=== PATIENT | female | born 1985 | race Caucasian/White ===

== ENCOUNTER 2020-10-22 15:34 | Inpatient (IN) | payer MEDICARE, BC ==
[~2020-10-22] VITALS: Ht 170.2 cm; Wt 137.0 kg
[2020-10-22] MEDS ORDERED: VITAMIN D21250 MCG PO (15:58)
[2020-10-22] MEDS ORDERED: CLARITIN10 MG PO (15:58)
[2020-10-22] MEDS ORDERED: PORTIA1 EACH PO (15:58)
--- NOTE | 2020-10-22 20:18 | NUR ---
PT ARRIVED TO THE [facility] FLOOR AT 1947, PT MOVED HERSELF OVER FROM THE STRETCHER TO THE BED. PT IS ALERT AND ORIENTED AD IS AT BEDSIDE. REVIEWED ADMISSION HX WITH PT. ORIENTED PT TO CALL LIGHT AND ROOM. PROVIDED PT WITH WATER AND SHE DENIES THE NEED FOR ANYOTHER CLEAR LIQUIDS AT THIS TIME. PT DENIES FURTHER NEEDS AND HAS LEFT FOR THE NIGHT. CALL LIGHT IS CLOSE.
--- NOTE | 2020-10-22 20:55 | NUR ---
awake, anxious, reassured. COop wtih admit questions. Pt has abnormal tongue movements and abnormal all over body tremors from MS. unsteady gait, 1PA. lungs clear, LBM today, generalized edema , obese, flushed face, abd tender. IVF infusing. Wirtten and verbal info given r/t current admit meds, preop and post op expectation, written info given and questions answered to her satisfaction
--- NOTE | 2020-10-22 23:32 | NUR ---
IN TO GET PT UP TO THE TOILET 1PA TO SBA, NO FURTHER NEEDS, PT FINISHED WATER FOR NPO AT OR, NO FURTHER NEEDS
--- NOTE | 2020-10-23 00:03 | NUR ---
AWAKES EASILY, NPO FOR AM PROCEDURES, NO C/O ABD PAIN OR N/V. CALL LIGHT AT BEDSIDE, ORRAL SPONGES AND SWABS. IVF INFUSING.
--- NOTE | 2020-10-23 02:02 | NUR ---
resting, no distress, ivf infusing, call light at bedside npo
--- NOTE | 2020-10-23 03:02 | NUR ---
Up to br, voided, back to bed, no c/o abd pain or n/v
--- NOTE | 2020-10-23 04:17 | NUR ---
uP TO BR, VOIDED qs YELLOW URINE, BACK TO BED, SLIGHT UNSTEADDINESS r SIDE. oN ROOM AIR, ivf INFUSING, DENIES ABDPAIN OR N/V AT THIS TIME
--- NOTE | 2020-10-23 06:02 | NUR ---
Pt has slept off and on since admit from ED. No emesis, mild c/o abd pain but declines pain med. Pt alert and oriented. Has Multiple Sclerosis with Ride sided weakness more prominent than Left. wears R foot brace. Involuntary all over body tremors present. Has been NPO since midnight for possible am procedure. Up to br, voiding QS. Was very anxious on admission, calmer. All procedures need to be explained prior to to decreae anxiety. prop/post op what to expect explained, stated understanding and questions answered to her satisfaction. verbal and written information given. IVF infusing.
--- NOTE | 2020-10-23 06:08 | NUR ---
Dr Fortune in room talking to pt , permit signed. Pt up to br, voided, back to bed, slight unsteadiness and noted.
--- NOTE | 2020-10-23 06:15 | NUR ---
IN TO ASSIST RN WITH VITALS, NO FURTHER NEEDS AT THIS TIME
--- NOTE | 2020-10-23 07:30 | NUR ---
REPORT RECEIVED FROM JENNIFER WAREHOUSE CHECKER RN. PT AWAKE IN BED THIS AM. REPORTS PAIN BUT DOES NOT WANT PAIN MEDICATION AT THIS TIME. PT PROBED FOR FURTHER DESCRIPTION OF PAIN, SHE RATES HER RUQ 8/10 DULL RADIATING ACHE. ENCOURAGED PT THAT ORAL PAIN MEDICATION WILL LAST LONGER, PREMEDICATED W/ ZOFRAN TO PREVENT N/V FROM GIVING PAIN MED ON EMPTY STOMACH PT REMAINS NPO. LUNG SOUNDS ARE CLEAR. BOWEL TONES HYPOACTIVE. PT SBA TO BATHROOM. RECEIVING D5LR @ 100 MLS/HR, UP TO VOID FREQUENTLY. IV FLAGYL HUNG. LFA IV REMAINS PATENT. EDUCATED PT TO NOTIFY NURSE FOR PAIN, SWELLING OR BLANCHING. PT LESS ANXIOUS THIS MORNING ABOUT SURGERY. DENIES FURTHER NEEDS. CALL LIGHT IN REACH.
--- NOTE | 2020-10-23 08:30 | NUR ---
PT CALLING TO REPORT BURNING PAIN AT LFA IV SITE. IV APPEARS INFILTRATED, MINIMAL SWELLING, BLANCHING, UNABLE TO FLUSH. IV REMOVED. THIS RN ATTEMPTED 2 IV STARTS, BOTH UNSUCCESSFUL. ROBERT SOLOMON RN CALLED FOR US GUIDED IV START PT IS LVS. PT UP TO BATHROOM, SURGICAL WIPEDOWN COMPLETE. PT BACK TO BED. SCDS ON. PRE OP CHECKLIST COMPLETED EARLY THIS AM BY MANAGER POWER RN.
--- NOTE | 2020-10-23 10:00 | NUR ---
ROBERT SOLOMON RN IN TO START US GUIDED IV. SUCCESSFUL AFTER 1 ATTEMPT, 18 G 2 1/2 IN. IV INSERTED INTO MONROE. PATENT AND FLUSHING WELL, IV FLAGYL RESTARTED.
--- NOTE | 2020-10-23 11:00 | NUR ---
PT TO SURGERY VIA [facility]ER W/ LEEANN DAY SURGERY RN
--- NOTE | 2020-10-23 12:39 | NUR ---
PT TAKEN TO OR FOR SURGERY. WILL FOLLOW
[2020-10-23] MEDS ORDERED: SUDOGEST30 MG PO (12:48)
[2020-10-23] MEDS ORDERED: MULTI VITAMIN1 EACH PO (12:49)
[2020-10-23] MEDS ORDERED: PROBIOTIC1 EAC1 PO (12:51)
--- NOTE | 2020-10-23 12:51 | NUR ---
MED REC COMPLETE
--- NOTE | 2020-10-23 15:19 | NUR ---
PATIENT DID HER OWN SURGICAL WIPE DOWN. NEW GOWN AND SOCKS. ALSO PUT THE SCDS ON.
--- NOTE | 2020-10-23 15:45 | CONS ---
[facility] [address] [place], [place] [address] Signed DATE OF CONSULTATION: 10/23/2020 CHIEF COMPLAINT: Right upper quadrant abdominal pain. HISTORY OF PRESENT ILLNESS: Patricia is a 35-year-old obese female, who over the last six days has been having persistent increasing right upper quadrant abdominal pain radiating through to her back. She has cut back her food significantly. She is still having pain. She had been to her primary care provider. Labs were drawn. They were particularly concerning. They were trying to get authorization for imaging. She finally came to emergency room because of the persistent worsening pain. The ultrasound showed multiple stones in the gallbladder with a mildly thickened gallbladder wall. Common bile duct is unremarkable. She had a positive Michelle's sign. Chest x-ray was unremarkable. I have been asked to admit her yesterday evening as a general surgeon on-call. She was given one dose of Zosyn. Overnight, she has done well. PAST MEDICAL HISTORY: Multiple sclerosis and obesity. PAST SURGICAL HISTORY: None. SOCIAL HISTORY: She does not smoke or drink. She is to Carl at [phone]. She has two children, both born vaginally. Eliana Posadas is a primary care provider. She prefers the [facility]. FAMILY HISTORY: None. REVIEW OF SYSTEMS: She had 10 systems reviewed and she takes no medication for the multiple sclerosis. ALLERGIES: None. MEDICATIONS: None. PHYSICAL EXAMINATION: VITAL SIGNS: Blood pressure is 106/67, her heart rate 85, respiratory rate 17, temperature is 97.6, she is 98% on room air, she is 5 feet 7 inches at 137 kg. Electronically Signed By: RAMONE BROWNING MD 10/23/20 1545 PATIENT NAME: PATRICIA CONNELLY CONSULTATION DATE OF : 83 REPORT #: [id number] PHYSICIAN: RAMONE BROWNING MD PCP: ELIANA POSADAS REPORT IS CONFIDENTIAL AND NOT TO BE RELEASED WITHOUT AUTHORIZATION [facility] [address] [place], [place] [address] Signed GENERAL: Patricia is a 35-year-old female, who does not appear systemically ill or jaundiced. LUNGS: Generally clear to auscultation bilaterally. HEART: Regular rate and rhythm without murmur. ABDOMEN: Obese, soft, but tender in the right upper quadrant. LABORATORY DATA: Her white blood cell count is 8.4, hemoglobin 12, platelets are 293. Electrolytes are unremarkable. The COVID is negative. Beta-hCG negative. AST 12, ALT 14, alkaline phosphatase 75, total bilirubin 0.5, albumin 3.8, amylase 18. RADIOGRAPHIC STUDIES: The ultrasound shows multiple stones and mildly thickened gallbladder wall with a positive Michelle's sign. Chest x-ray is unremarkable. ASSESSMENT/PLAN: Patricia is a 35-year-old obese female, who presents with cholecystitis and cholelithiasis. She has been admitted and hydrated overnight. I reviewed with her the location and function of the gallbladder. I gave her a brochure on the gallbladder as well. We went through that brochure page by page. She understands laparoscopic versus open cholecystectomy. We reviewed the risks including, but not limited to bleeding, infection, scarring, change in contour of the skin, damage to bowel, damage to main bile duct, incisional hernias and other unforeseen comorbidities. She has expressed understanding and would like to proceed with the surgery. Ramone Browning MD ALB/MODL /[id number] cc: MD Eliana Sr PA Copies: RAMONE BROWNING MD Electronically Signed By: RAMONE BROWNING MD 10/23/20 1545 PATIENT NAME: PATRICIA CONNELLY CONSULTATION DATE OF : 83 REPORT #: [id number] PHYSICIAN: RAMONE BROWNING MD PCP: ELIANA POSADAS REPORT IS CONFIDENTIAL AND NOT TO BE RELEASED WITHOUT AUTHORIZATION [facility] [address] [place] [address] Signed ELIANA POSADAS Electronically Signed By: RAMONE BROWNING MD 10/23/20 1545 PATIENT NAME: PATRICIA CONNELLY CONSULTATION DATE OF : 83 REPORT #: [id number] PHYSICIAN: RAMONE BROWNING MD PCP: ELIANA POSADAS REPORT IS CONFIDENTIAL AND NOT TO BE RELEASED WITHOUT AUTHORIZATION
--- NOTE | 2020-10-23 15:47 | NUR ---
10/23/20 1547 Isaura Morris 1543: PT ARRIVES TO ACU VIA BED FOR RECOVERY. NO RESPONSE TO VERBAL STIMULI, VSS, RESP EVEN AND UNLABORED. O2 SAT >955 ON 8L VIA FACEMASK. MAINTAINING AIRWAY WITH HEAD TILTED,OPA IN PLACE. SCDS IN PLACE
--- NOTE | 2020-10-23 17:15 | NUR ---
PT ARRIVED BACK TO ROOM VIA BED W/ [facility] @ 2345. REPORT RECEIVED AT BEDSIDE. VSS. PT ON 2 L NC SATING 96%, RR 16. PT RATING PAIN AT MIDLINE INCISION 10/10. 1 MG DILAUDID IV PUSH GIVEN SLOWLY. PT REPORTED FEELING A "HOTFLASH" 5 MINUTES AFTER RECEIVING DILAUDID. COOL WASHCLOTHS PLACED ON HEAD AND NECK, PT REPORTS FEELING MORE COMFORTABLE NOW, REPOSITIONED W/ PILLOWS. D5LR RESTARTED @ 100 MLS/HR. GIVEN ICE WATER. CLEAR LIQUID TRAY ORDERED. PT DENIES NAUSEA. CALL LIGHT IN REACH.
--- NOTE | 2020-10-23 18:44 | NUR ---
PT TOLERATED CLEAR LIQUID TRAY WELL. DENIES NAUSEA AND ABD PAIN HAS BEEN WELL MANAGED W/ 1 MG IV DILAUDID RECEIVED EARLIER, PT NOW RATES 4/10. REQUESTING TO USE BATHROOM, UP 1 PA TO AMBULATE TO BATHROOM, PT STATES SHE FEELS STEADY ON FEET. MIDLINE INCISION DRSG AND LAP SITE DRSGS TO RUQ, RLQ REMAIN C,D,I. BOWEL TONES HYPOACTIVE, PT BURPING, NOT YET PASSING GAS. SATING 94 % ON ROOM AIR. LUNG SOUNDS ARE CLEAR. PT DENIES SOB. EDUCATED ON IMPORTANCE OF AMBULATION POST-OP. PT VERBALIZED UNDERSTANDING.
--- NOTE | 2020-10-23 19:57 | NUR ---
PT RESTING IN BED. ABD PAIN 4/10, DENIES NEED FOR INTRERVENTION. CALL LIGHT IN REACH.
--- NOTE | 2020-10-23 20:07 | NUR ---
IN TO ASSIST RN WITH LAST SET OF POSTOPS, NO FURHTER NEEDS
--- NOTE | 2020-10-23 21:20 | NUR ---
PT CALLED FOR HELP TO RESTROOM. SHE IS NOW BACK IN BED AND DENIES FURTHER NEEDS. CALL LIGHT IS CLOSE.
--- NOTE | 2020-10-23 22:03 | NUR ---
IN ROOM TO ADMINISTER MEDICATIONS FOR PRIMARY RN LORIE. PT RATES PAIN AT 8/10. WE DISCUSSED GETING HER ON PO PAIN MEDS. PT AGREED TO HAVE IV DILAUDID AT THIS TIME TO GET HER PAIN UNDER CONTROL AND TAKE THE PO NORCO A LITTLE LATER TO KEEP HER PAIN UNDER CONTROL. PROVIDED PT WITH A FAN AND ADMINISTERED HER EVENING MEDICATIONS ALONG WITH 1MG IV DILAUDID. PT DENIES FURTHER NEEDS AT THIS TIME. CALL LIGHT IS CLOSE.
--- NOTE | 2020-10-23 22:30 | NUR ---
ASSESSMENT COMPLETED. GCS 15, A&O X4. LUNGS CLEAR, HEART TONES REGULAR. ABD SOFT, TENDER, BOWEL TONES HYPOACTIVE, DENIES FLATUS, INCISIONS HAVE SLIGHT SHADOWING ON DRESSINGS, INTACT. ABD 4/10, DENIES NEED FOR INTERVENTION. IV WNL. TINGLING IN LEFT HAND, PULSE AND MOTOR INTACT. CMS INTACT IN ALL OTHER EXTREMITIES. IV FLUIDS INFUSING PER ORDER. NO OTHER NEEDS AT THIS TIME. CALL LIGHT IN REACH.
--- NOTE | 2020-10-24 00:23 | NUR ---
PT RESTING IN BED, EYES CLOSED. RR EVEN, UNLABORED. CALL LIGHT IN REACH.
--- NOTE | 2020-10-24 02:02 | NUR ---
in to get vitals, pt up to void, no further needs at this time
--- NOTE | 2020-10-24 02:10 | NUR ---
ASSESSMENT, VS AND I&O COMPLETED. GCS 15, A&O X4. PT ABD PAIN 4/10, DENIES NEED FOR INTERVENTION. DRESSINGS HAVE SMALL AMOUNT OF SHADOWING. ABD SOFT, TENDER, OBESE, BOWEL TONES HYPOACTIVE. IV WNL, CDI. LUNGS CLEAR, HEART TONES REGULAR. LEFT HAND HAS TINGLING, CHRONIC. ICE WATER PROVIDED. NO OTHER NEEDS, CALL LIGHT IN REACH.
--- NOTE | 2020-10-24 02:28 | NUR ---
PT CALLED D/T IV PUMP BEEPING. IT IS NOW INFUSING FINE. PT DENIES NEEDS AND CALL LIGHT IS CLOSE.
--- NOTE | 2020-10-24 04:02 | NUR ---
PT RESTING IN BED, EYES CLOSED. RR EVEN, UNLABORED. CALL LIGHT IN REACH.
--- NOTE | 2020-10-24 05:50 | OR ---
[facility] [address] [place], [place] [address] Signed DATE OF OPERATION: 10/23/2020 SURGEON: Ramone Browning MD PREOPERATIVE DIAGNOSIS: Acute cholecystitis with cholelithiasis. 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 PROCEDURE: Laparoscopic converted to laparotomy with partial omentectomy. ESTIMATED BLOOD LOSS: None. FINDINGS: Patricia had a completely normal gallbladder and appendix. She had a twisting of her right side of the omentum that secondarily involved the midportion of the transverse colon as well as a small amount of the proximal to mid right colon. INDICATIONS: Patricia is a 35-year-old female, who had several days of right-sided abdominal pain. She was felt to have right lower quadrant pain with her primary care provider. Labs were ordered and they were all normal including the white count and liver function tests. Amylase and lipase were normal. C-reactive protein was little elevated at 32. They were waiting for authorization for a CT scan of the abdomen and pelvis. In the office, they had concerns regarding appendicitis. Her pain persisted, and so her brought her into the emergency room for evaluation. In the emergency room, it seemed to be more right upper quadrant. No repeat labs were done the following morning. An ultrasound had been ordered and she was said to have multiple gallstones with a mildly thickened gallbladder wall. Common bile duct was unremarkable. I have been asked to admit her overnight as general surgeon on-call. She received IV fluids and antibiotics. This morning when I met with her, she was photographer still in the right upper quadrant, felt like it was radiating through to her back. She said she was hungry, could probably eat, but her appetite was not the best due to the pain. We had discussed the above findings along with the location and function of the gallbladder. We had discussed laparoscopic versus open cholecystectomy. We reviewed the expected intraop and postop course. She understands there is risk including, but not limited to bleeding, infection, scarring, change in contour of the skin, damage to bowel, damage to Electronically Signed By: RAMONE BROWNING MD 10/24/20 0550 PATIENT NAME: PATRICIA CONNELLY OPERATIVE REPORT DATE OF : 83 REPORT #: [id number] PHYSICIAN: RAMONE BROWNING MD PCP: CINDY PERALES REPORT IS CONFIDENTIAL AND NOT TO BE RELEASED WITHOUT AUTHORIZATION [facility] [address] [place], [place] [address] Signed main bile duct, incisional hernias, and other unforeseen comorbidities. She had expressed understanding and wished to proceed. DESCRIPTION OF PROCEDURE: I met with Patricia in our preoperative area once again. After that, she was taken into the operating room and placed in the supine position under general endotracheal tube anesthesia. She was on preoperative antibiotics. She had preoperative Lovenox. SCDs were in place. She was prepped and draped in usual sterile fashion. Our trocars were placed in usual positions under direct visualization of camera without difficulty. As always, we took a look around the abdomen. Her gallbladder was somewhat lateral and seemed quite uninflamed. Liver was fine. Stomach was fine. We saw inflammatory changes in the omentum on the right side involving the proximal to mid transverse colon and then down to the proximal portion of the right colon and up the side of the right colon just a bit. We added another 5 mm trocar in the right lower quadrant of the abdomen and that helped us evaluate the appendix, which was completely uninvolved and quite healthy. We looked at the gallbladder and lifted it up gently and it was quite uninvolved in this whole process. It was clear that everything was involved with this omentum. Initially, we used blunt dissection, we were able to separate most of this from the surrounding bowel and mesocolon. Unfortunately, there was one piece that was adherent midway between the panic flexure in the midportion of the transverse colon. We were sure of how involved that was with the bowel, we did not feel like we could evaluate that adequately with our laparoscopic instruments. We actually took several minutes in that regard. We decided to convert her to an open upper midline laparotomy. This was done sharply and then with the help of the cautery. We were able to enter the abdomen without difficulty. Again, we looked at the cecum and all the way around hepatic flexure, all the way past this area of infarcted omentum. The colon was quite unremarkable and so was the gallbladder itself. We found underneath there was an area of adhesion and it had twisted the omentum and caused the infarction. We think the colon was secondarily involved. There was just a small area of adhesion to the proximal transverse colon that was easily taken down with the cautery. We palpated very carefully and again no evidence of any tumor or other concern or diverticulum. The omentum came off quite readily with the cautery since it had been infarcted for about 6-7 days. We passed the omentum off the field for pathologic review. After thorough inspection, we did not feel the gallbladder nor the appendix needed to be removed. We then closed her midline laparotomy with multiple interrupted [id number] #1 PDS sutures. We closed the fascia of the supraumbilical trocar site with interrupted 0 Vicryl suture. We injected local anesthetic into this incisions. The wounds were irrigated and suctioned out until clear. The dermis was reapproximated on all incisions with interrupted 3-0 subcuticular Monocryl sutures. We used ronn to reapproximate the skin on all the incisions. Dry gauze and tape were then applied. After this, a Quick catheter was passed in and out with return to 200 mL of clear yellow urine. She was then awakened from her anesthesia, extubated in the OR, and taken to the recovery Electronically Signed By: RAMONE BROWNING MD 10/24/20 0550 PATIENT NAME: PATRICIA CONNELLY OPERATIVE REPORT DATE OF : 83 REPORT #: [id number] PHYSICIAN: RAMONE BROWNING MD PCP: CINDY PERALES REPORT IS CONFIDENTIAL AND NOT TO BE RELEASED WITHOUT AUTHORIZATION [address] [address] Signed room in stable condition. Ramone Browning MD ALB/MODL /[id number] cc: MD Cindy Sr PA Copies: RAMONE BROWNING MD, LINDA PA ~ Electronically Signed By: RAMONE BROWNING MD 10/24/20 0550 PATIENT NAME: PATRICIA CONNELLY OPERATIVE REPORT DATE OF : 83 REPORT #: [id number] PHYSICIAN: RAMONE BROWNING MD PCP: CINDY PERALES REPORT IS CONFIDENTIAL AND NOT TO BE RELEASED WITHOUT AUTHORIZATION
--- NOTE | 2020-10-24 06:16 | NUR ---
IN ROOM TO ADMINISTER NORCO FOR PAIN 12/19. PT IS ON THE PHONE WITH AND DENIES FURTHER NEEDS. CALL LIGHT IS CLOSE.
--- NOTE | 2020-10-24 07:54 | NUR ---
REPORT RECEIVED FROM LORIE FUENTES. PT AWAKE THIS MORNING. PT HAS BEEN ADVANCED TO REGULAR DIET SHE HAS BEEN TOLERATING CLEAR AND FULL LIQUIDS WELL. PT DENIES NAUSEA THIS MORNING AND REPORTS MINIMAL PAIN. SURGICAL INCISIONS (MIDLINE AND 4 LAP SITES) HAVE KIAN IN PLACE AND ARE OPEN TO AIR, NO DRAINAGE. BREAKFAST ORDERED, WATER REFRESHED. PT DENIES FURTHER NEEDS.
--- NOTE | 2020-10-24 09:31 | NUR ---
SBA TO BR. VITALS AND I&OS CHARTED. LINENS CHANGED. PATIENT REQUESTS SOMETHING FOR PAIN, RN NOTIFIED. SIDE TABLE TIDED,CALL LIGHT AND PERSONAL ITEM WITHIN REACH
--- NOTE | 2020-10-24 09:50 | NUR ---
PT UP TO AMBULATE HALLWAY WITH THIS RN. TOLERATING REGULAR DIET WELL. PT C/O 01/19 INCISIONAL PAIN AT MIDLINE, GIVEN TYLENOL NORCO IS NOT YET DUE. RE-EDUCATED ON BRACING ABD W/ PILLOW WHEN COUGHING/DEEP BREATHING AND GETTING UP AND DOWN FROM CHAIR. BOWEL TONES HYPOACTIVE, PT DENIES PASSING GAS SINCE PROCEDURE, DENIES NAUSEA. UP FREQUENTLY TO VOID. BACK TO CHAIR. CALL LIGHT IN REACH.
--- NOTE | 2020-10-24 11:30 | NUR ---
PT GIVEN 10/ NORCO FOR 7/10 ABD PAIN. WARM PACK TO MIDLINE INCISION. DENIES FURTHER NEEDS.
--- NOTE | 2020-10-24 12:45 | NUR ---
PT ATE 100% OF LUNCH, TOLERATING REGULAR DIET, DENIES ANY NAUSEA. AMBULATED FULL LAP AROUND BOTH NURSES STATIONS. TOLERATED WELL. DENIES PAIN AT THIS TIME. BACK TO CHAIR WITH WARM PACK TO MIDLINE. RECLINED IN CHAIR. CALL LIGHT IN REACH.
--- NOTE | 2020-10-24 13:40 | NUR ---
DR BROWNING CALL AND NOTIFIED OF PT STATUS. TOLERATING REGULAR DIET, AMBULATING FREQUENTLY AND PAIN IS BEING ADEQUATELY MANAGED BY ORAL PAIN MEDICATION. VSS. BOWEL TONES ACTIVE AFTER LUNCH. PT DENIES PASSING ANY GAS YET, IS BURPING FREQUENTLY. PT IS REQUESTING TO GO HOME THIS AFTERNOON. DR. BROWNING HAS GIVEN VERBAL ORDER FOR DISCHARGE.
[2020-10-24] MEDS ORDERED: HYDROCODON-ACE1 EAC8 PO (13:48)
--- NOTE | 2020-10-24 15:00 | NUR ---
REVIEWED DC INSTRUCTIONS W/ PT AND PRESENT. INSTRUCTED PT NOT TO LIFT ANYTHING HEAVIER THAN 20 LBS AND NO BATHS ONLY SHOWERS UNTIL CLEARED W/ DR. BROWNING. PT STABLE. VSS. TO F/U W/ DR. BROWNING IN 7-10 AFTER DC FOR STAPLE REMOVAL. INSTRUCTED TO CALL FOR APPT. 18 G IV REMOVED FROM MONROE, CATH INTACT. PT WHEELED TO DEPART HOSPITAL W/ TO HOME.
--- NOTE | 2020-10-27 16:20 | PATH ---
[facility] [address] [place], [place] [address] Signed SPECIMEN(S): A OMENTUM SPECIMEN(S): B OMENTAL NODULE SPECIMEN SOURCE: A. OMENTUM B. OMENTAL NODULE CLINICAL HISTORY: Preop: Cholecystitis. Omental infection. FINAL PATHOLOGIC DIAGNOSIS: A. Omentum, omentectomy: - Fragments of omentum with hemorrhage, vascular congestion, reactive mesothelial changes, and areas of fibrosis. - No evidence of malignancy. B. Omental nodule, excision: - Omentum with hemorrhage, vascular congestion, reactive fibrosis, focal fat necrosis, and mild chronic inflammation. - No evidence of malignancy. NAL:cml:C2NR MICROSCOPIC EXAMINATION: Histologic sections of all submitted blocks are examined by light microscopy. These findings, together with the gross examination, support the pathologic diagnosis. GROSS DESCRIPTION: Two specimens are received in two containers, labeled "JS." A. The specimen, labeled "JS, A.," and designated on the requisition "omentum," is received in formalin and consists of an adipose tissue fragment with a detached friable fragment measuring 11.5 x 5.5 x 2.2 cm in aggregate, ranging 2.7-10.0 cm in greatest dimension and weighs 33 grams in aggregate. The tissue fragments appear yellow-violaceous and contain a partial firm area measuring 5.0 cm with attached palpable multilobular tissue. The cut surface is multi-pigmented, smooth and glistening with no nodules grossly identified. Account Installation Specialist sections are submitted in cassettes (A1-A5). B. The specimen, labeled "MILAGROS, B.," and designated on the requisition "omental nodule," is received in formalin and consists of an adipose tissue fragment measuring 3.8 x 1.3 x 0.7 cm. The surface PATIENT NAME: PATRICIA CONNELLY PATHOLOGY DATE OF : 83 REPORT #: [id number] PHYSICIAN: SULEMA PATHOLOGY PCP: ELIANA PERALES REPORT IS CONFIDENTIAL AND NOT TO BE RELEASED WITHOUT AUTHORIZATION [facility] [address] [place], [place] [address] Signed demonstrates a 0.7 x 0.5 x 0.3 cm, holloway-pink possible nodule. Specimen is inked blue, sectioned longitudinally revealing a possible focal fibrous area, and is entirely submitted in cassette (B1). AT (under the direct supervision of a pathologist) The Gross Description was prepared using a voice recognition system. The report was reviewed for accuracy; however, sound-alike word errors, addition and/or deletions may occur. If there is any question about this report, please contact Client Services. PERFORMING LABORATORY: The technical component was performed by [facility], [address] [place] [id number] (Community Health Representative: Becki Lott MD; CLIA# [id number]). [facility], [address] [address] (CLIA# [id number]). Diagnostician: Marta Varela MD Pathologist Electronically Signed 10/27/2020 Copies: ~ PATIENT NAME: PATRICIA CONNELLY PATHOLOGY DATE OF : [birth year] REPORT #: [id number] PHYSICIAN: SULEMA PATHOLOGY PCP: ELIANA PERALES REPORT IS CONFIDENTIAL AND NOT TO BE RELEASED WITHOUT AUTHORIZATION
== END 2020-10-24 15:10 | disposition home or self-care (01) | DRG 356 ==
LOC: ED 15:34 → MS 15:37 → ED 17:54 → MS 10-23 16:07
PROVIDERS: ADMIT Colon & Rectal Surgery; ATTEND Colon & Rectal Surgery
PROC: 0DBU0ZZ Excision of Omentum, Open Approach (ICD-10-PCS; 2020-10-23)
PROC: 0WJP4ZZ Inspection of Gastrointestinal Tract, Percutaneous Endoscopic Approach (ICD-10-PCS; principal; 2020-10-23 12:00)
DX: K55.069 Acute infarction of intestine, part and extent unspecified (principal); K56.2 Volvulus; Z68.42 Body mass index [BMI] 45.0-49.9, adult; Z20.822 Contact with and (suspected) exposure to COVID-19; G35 Multiple sclerosis; E66.9 Obesity, unspecified; Z79.3 Long term (current) use of hormonal contraceptives; Z53.31 Laparoscopic surgical procedure converted to open procedure
CPT/HCPCS: 00790; 36415; 71045; 76705; 80053; 84703; 85025; 88305; 88307; 94762; 96374; 96375; 99285-25; C9803; J0692; J1100; J1170; J1650; J1885; J2001; J2250; J2270; J2405; J2543; J2704; J3010; J7121; U0003